=== PATIENT | male | born 2000 | race Two or more races ===

== ENCOUNTER 2024-06-04 21:12 | Emergency (ER) | payer SELFPAY ==
[~2024-06-04] VITALS: Ht 165.1 cm; Wt 44.7 kg
[2024-06-04 21:59] LABS: Chloride 102 mmol/L (98-107); Potassium 3.8 mmol/L (3.5-5.1); Sodium 137 mmol/L (136-145)
[2024-06-04 22:00] LABS: Anion Gap 6 (5-15); Calcium 9.7 mg/dL (8.7-10.4); Carbon Dioxide 29 mmol/L (20-31)
[2024-06-04 22:05] LABS: BUN/Creatinine Ratio 10.6 (10.0-20.0); Blood Urea Nitrogen 12 mg/dL (9-23)
[2024-06-04 22:10] LABS: Glucose 116 mg/dL (74-106)
[2024-06-04 22:44] LABS: Rapid Influenza A Negative (Negative); Rapid Influenza B Negative (Negative)
[2024-06-04 22:47] LABS: COVID19 ANTIGEN SOFIA FIA NEGATIVE (NEGATIVE)
[2024-06-05 00:30] VITALS: BP 118/74
[2024-06-05] MEDS ORDERED: ACET500T58 PO (00:41)
[2024-06-05] MEDS ORDERED: AMOX875T4 PO (00:41)
--- NOTE | 2024-06-05 00:42 | ED.PDOC ---
History of Present Illness HPI Comments 23-YEAR-OLD MALE PRESENTS TO ER WITH COMPLAINTS OF FLU-LIKE SYMPTOMS X2 DAYS. PATIENT REPORTS HE HAS BEEN EXPERIENCING INTERMITTENT FEVER, SORE THROAT, BODY ACHES, DRY COUGH AND CONGESTION X2 DAYS. HE RATES HIS CURRENT SORE THROAT AND BODY ACHES PAIN AN 8/10. REPORTS THAT HE LAST TOOK THERAFLU FOR HER SYMPTOMS AT 1:00 P.M. PRIOR TO ARRIVAL TO ER. PATIENT PRESENTS TO ER AFEBRILE, AMBULATORY, WITH STEADY GAIT, IN NO DISTRESS. DENIES SHORTNESS OF BREATH, CHEST PAIN, HEMOPTYSIS, NAUSEA/VOMITING, HEADACHE, NECK PAIN, DIZZINESS, ABDOMINAL PAIN, CHANGES IN URINATION/BM OR ANY FURTHER SYMPTOMS/COMPLAINTS Chief Complaint: Flu like Time Seen by MD: 21:28 Primary Care Provider: UNKNOWN Reviewed Notes: Nurses Notes, Medications, Allergies Information Source: Patient Mode of Arrival: Ambulatory Past Medical History Immunizations: Current Medical History: Denies Family History Family History: Unknown Social History Lives In: Home Constitutional: See HPI EENTM: See HPI Respiratory: See HPI Cardiovascular: No Symptoms Reported Gastrointestinal: No Symptoms Reported Genitourinary: No Symptoms Reported Neurological: No Symptoms Reported Musculoskeletal: No Symptoms Reported Integumentary: No Symptoms Reported Allergic/Immunocompromised: others (DENIES) Hematologic/Lymphatic: No Symptoms Reported Endocrine: No Symptoms Reported Psychiatric: No symptoms Reported Physical Exam General Appearance: No Apparent Distress HEENT: PERRL/EOMI, Pharynx Normal, Other (MILD ERYTHEMA/BULGING NOTED TO BILATE RAL TMS. REMAINDER BILATERAL EAR EXAM-UNREMARKABLE) Neck: Full Range of Motion, Non-Tender, Normal Respiratory: Chest Non-Tender, Lungs Clear, No Accessory Muscle Use, No Respiratory Distress, Normal Breath Sounds Cardiovascular: No Murmur, No Gallop, Regular Rate/Rhythm Breast Exam: Deferred Gastrointestinal: NOT DONE Genitalia: Deferred Pelvic: Deferred Rectal: Deferred Extremities: Normal capillary refill, Normal range of motion Neurologic: Alert, medicaid billing specialist II-XII nml as Tested, No Motor Deficits, Normal Affect, Normal Mood, No Sensory Deficits Cerebellar Function: Normal Reflexes: Normal Skin: Dry, Normal Color, Warm Peripheral Pulses: 2+ Radial (R), 2+ Radial (L), 2+ Brachial (R), 2+ Brachial (L) Lymphatic: No Adenopathy Was a procedure done? Was a procedure done?: No Sedation Sedation?: No Fever Differential Dx Differential Diagnosis: Pneumonia, Sepsis, Other (COVID-19, INFLUENZA) X-Ray, Labs, Meds, VS Vital Signs Date Time Temp Pulse Resp B/P (MAP) Pulse Ox O2 Delivery O2 Flow Rate FiO2 06/04/24 21:30 99.0 102 20 141/80 (100) 94 Lab Test 06/04/24 21:30 06/04/24 21:29 Range/Units Influenza Type A Antigen Negative Negative Influenza Type B Antigen Negative Negative SARS-CoV-2 Antigen (Rapid) Negative NEGATIVE Sodium Level 137 136-145 mmol/L Potassium Level 3.8 3.5-5.1 mmol/L Chloride Level 102 98-107 mmol/L Carbon Dioxide Level 29 20-31 mmol/L Anion Gap 6 5-15 Blood Urea Nitrogen 12 9-23 mg/dL Creatinine 1.13 0.700-1.30 mg/dL Glomerular Filtration Rate Calc 94 >90 mL/min BUN/Creatinine Ratio 10.6 10.0-20.0 Serum Glucose 116 H 74-106 mg/dL Calcium Level 9.7 8.7-10.4 mg/dL SWAB RESULTS REVIEWED-NEGATIVE BMP WAS ORDERED BY NURSING STAFF AND REVIEWED ANY SIGNIFICANT ABNORMALITIES ROCEPHIN 1 G IM ORDERED IBUPROFEN 800 MG P.O. ORDERED PATIENT HAD IMPROVEMENT IN SYMPTOMS, TOLERATING P.O. INTAKE WELL AND IN NO D ISTRESS PRIOR TO DISCHARGE ADVISED TO DRINK PLENTY OF FLUIDS ADVISED TO FOLLOW UP WITH PCP IN 1-2 DAYS PATIENT VERBALIZED UNDERSTANDING AND AGREEABLE WITH CURRENT PLAN OF CARE ADVISED TO RETURN TO ER IMMEDIATELY IF SYMPTOMS WORSEN Time of 1ST Reevaluation: 00:12 Reevaluation 1ST: N/A Patient Education/Counseling: Diagnosis, Treatment, Prognosis, Need For Follow Up Family Education/Counseling: Diagnosis, Treatment, Prognosis, Need For Follow Up Departure 1 Departure Time of Disposition: 00:32 Impression: Primary Impression: Otitis media of both ears Qualified Codes: H66.93 - Otitis media, unspecified, bilateral Additional Impression: Upper respiratory infection Qualified Codes: J06.9 - Acute upper respiratory infection, unspecified Disposition: 01 HOME / SELF CARE / HOMELESS Condition: Stable e-Prescriptions Acetaminophen (Acetaminophen) 500 Mg Tab 500 MG PO Q4HPRN, #30 TAB 0 Refills Prov: JUSTIN SOLIS 06/05/24 Amoxicillin & Pot Clavulanate (Amoxicillin/Potassium Cla) 875 Mg Tab 1 TAB PO BID for 7 Days, #14 TAB 0 Refills Prov: JUSTIN SOLIS 06/05/24 Discharged With: Relative Critical Care Note Critical Care Time?: No Stability Stability form required: JUSTIN Hinds Jun 05, 2024 00:42
[2024-06-05 00:56] VITALS: TEMP 102.8
[2024-06-05] MEDS: IBUPROFEN 800 MG TAB PO ONE (00:56)
[2024-06-05] MEDS: cefTRIAXone SOD 1,000 MG VL IM ONE (00:56)
[2024-06-05 01:39] VITALS: PULSE 93; RESP 16; O2SAT 97
== END 2024-06-05 01:41 | disposition home or self-care (01) ==
LOC: ER 21:12
DX: H66.93 Otitis media, unspecified, bilateral (principal); J06.9 Acute upper respiratory infection, unspecified; Z20.822 Contact with and (suspected) exposure to COVID-19
CPT/HCPCS: 36415; 80048; 87426; 87804; 96372; 99283; J0696